=== PATIENT | female | born 1965 | race Caucasian/White ===

== ENCOUNTER 2022-12-08 13:22 | Inpatient (IN) | payer OTHER ==
[~2022-12-08] VITALS: Ht 170.2 cm; Wt 100.2 kg
[2022-12-08] MEDS ORDERED: HYDROCODONE/APAP 10-325 MG TABLET ONE (13:38)
[2022-12-08] MEDS ORDERED: HYDROCODONE/APAP 5-325MG TABLET PO ONE (13:45)
[2022-12-08] MEDS ORDERED: HYDROCODONE/APAP 10-325 MG TABLET PO ONE (13:45)
--- NOTE | 2022-12-08 14:06 | NUR ---
"Plan to admit" per Dr Zarate. ER registration/admitting staff Usha notified.
[2022-12-08 14:27] LABS: HEMATOCRIT 36.8 % (31.2-41.9); MEAN CORPUSCULAR HEMOGLOBIN 24.8 uug (24.7-32.8); MEAN CORPUSCULAR VOLUME 77.9 fL (75.5-95.3); PLATELET COUNT (AUTO) 174 K/uL (179-408)
--- NOTE | 2022-12-08 14:32 | NUR ---
Spouse is at bedside. Plan of care was discussed with patient and family. Patient and family verbalized understanding. No questions or concerns at this time from the patient and her family. Extra pillows for support to affected site were placed, pending results for now.
[2022-12-08] MEDS ORDERED: LEVO50TA PO (14:40)
[2022-12-08 14:52] LABS: CREATININE 0.7 mg/dL (0.6-1.3); POTASSIUM 3.1 mmol/L (3.5-5.1)
[2022-12-08 14:57] LABS: BILIRUBIN,TOTAL 0.7 mg/dL (0.2-1.0); TOTAL PROTEIN, SERUM 7.5 g/dL (6.4-8.2)
[2022-12-08] MEDS ORDERED: MORPHINE SULFATE 4 MG/1 ML DISP.SYRIN ONE ×2 (15:04→16:11)
[2022-12-08] MEDS ORDERED: MORPHINE SULFATE 4 MG/1 ML DISP.SYRIN IV ONE ×2 (15:15→16:15)
[2022-12-08] MEDS ORDERED: ONDANSETRON 4 MG/2 ML VIAL IV PRN (15:30)
[2022-12-08] MEDS ORDERED: ACETAMINOPHEN 325 MG TABLET PO PRN (15:30)
[2022-12-08] MEDS ORDERED: MAGNESIUM HYDROXIDE 30 ML LIQUID UDC PO PRN (15:30)
[2022-12-08] MEDS ORDERED: HYDROCODONE/APAP 5-325MG TABLET PO PRN (15:30)
[2022-12-08] MEDS ORDERED: IV D5 1/2 NS 1000 ML 1,000 ML IV PRN (15:30)
[2022-12-08] MEDS ORDERED: POTASSIUM CHLORIDE 20 MEQ TAB.PRT.SR PO ONE (15:30)
[2022-12-08] MEDS ORDERED: REMEDY ESSENTIAL ZINC PASTE 113 GM TP PRN (15:30)
--- NOTE | 2022-12-08 16:28 | NUR ---
Pending callback from 3rd floor nurse Patrick to accept this patient to room 311, patient is admitted to medical-surgical floor room 311, under the care of [facility] hospitalist Norma Mills. Belongings List completed.
[2022-12-08] MEDS ORDERED: FENTANYL CITRATE 100 MCG/2 ML AMPUL IV ONE (17:15)
[2022-12-08] MEDS ORDERED: FENTANYL CITRATE 100 MCG/2 ML AMPUL ONE (17:16)
--- NOTE | 2022-12-08 17:41 | NUR ---
Jesenia bergman in ED - 12/08/22 at 1759 by PAYTON Patient is now in 3rd floor room 311. Reasessment for pain post IV fenatanyl will be done by primary 3rd floor nurse
--- NOTE | 2022-12-08 17:41 | NUR ---
Patient is now in 3rd floor room 311. Reassessment for pain post IV fentanyl will be done by primary 3rd floor nurse
[2022-12-08 17:56] LABS: *BILIRUBIN,URIN NEGATIVE (NEGATIVE); *BLOOD, URINE NEGATIVE (NEGATIVE); *CLARITY,URINE CLEAR (CLEAR); *COLOR,URINE YELLOW (YELLOW); *KETONES,URINE NEGATIVE (NEGATIVE); *UROBILINOGEN,URINE 0.2 E.U./dl (NORMAL); LEUKOCYTE ESTERASE ,URINE NEGATIVE (NEGATIVE); NITRITE, URINE NEGATIVE (NEGATIVE); PH,URINE 6.5 (5.0-8.0); UGLUCOSE NEGATIVE (NEGATIVE)
[2022-12-08 17:57] VITALS: BP 139/65
[2022-12-08] MEDS: HYDROCODONE/APAP 5-325MG TABLET PO ONE ×2 (18:39→18:54)
--- NOTE | 2022-12-08 18:39 | NUR ---
Patient said she feels fine at this time, does not want norco at this time. Addendum: 12/08/22 at 0 by IVAN QUIGLEY RN, RN patient changed her mind and requested norco, administered as ordered.
--- NOTE | 2022-12-08 19:11 | NUR ---
patient admitted from ER for left leg fracture. NPO. alert,oriented x4, no sob, respirations are even nonlabored, skin warm and dry to touch. no skin issues noted.
--- NOTE | 2022-12-08 19:30 | NUR ---
Received in bed alert oriented, no sob no chest pain noted, but has pain left hip fracture, will medicate the patient as ordered, patient remains NPO at this time. at bedside helps attend patient needs. For ortho follow up. cont to monitor.
[2022-12-08 20:12] VITALS: BP 142/66
--- NOTE | 2022-12-08 21:14 | NUR ---
Patient complain of abdominal pain, notify Norma Mills PROFESSIONAL NURSING ASSISTANT with order of pepcid 20mg po once.
[2022-12-08] MEDS ORDERED: FAMOTIDINE 20 MG TABLET PO ONE (21:15)
[2022-12-08] MEDS: MORPHINE SULFATE 2 MG/1 ML DISP.SYRIN IV PRN (22:01)
--- NOTE | 2022-12-09 | NUR ---
Patient sleep intermittently, Morphine 1mg iv help the pain, but refused to take stronger or more pain medication. Patient kept clean and dry, uses Pure Wick. Patient refused peter cath, cont pain management. Patient given Ice Pack on her left fracture, plus her mint lotion applied. cont to monitor.
[2022-12-09 04:50] VITALS: BP 143/75
[2022-12-09] MEDS: MORPHINE SULFATE 2 MG/1 ML DISP.SYRIN IV PRN ×2 (04:59→09:06)
[2022-12-09] MEDS: LEVOTHYROXINE SODIUM 50 MCG TABLET PO SCH (06:10)
[2022-12-09 06:41] LABS: MEAN CORPUSCULAR VOLUME 77.7 fL (75.5-95.3); PLATELET COUNT (AUTO) 173 K/uL (179-408)
[2022-12-09 07:09] LABS: CREATININE 0.6 mg/dL (0.6-1.3); PHOSPHOROUS 3.8 mg/dL (2.5-4.9); POTASSIUM 4.2 mmol/L (3.5-5.1)
[2022-12-09 07:19] LABS: THYROID STIMULATING HORMONE 4.516 mIU/mL (0.358-3.740)
--- NOTE | 2022-12-09 07:42 | NUR ---
DR PATTERSON CALLED AND HAD TELEPHONE ORDER OF PROCEDURAL CONSENT OF LEFT HIP ARTROPLASTY, ENDORSE TO NEXT SHIFT.
--- NOTE | 2022-12-09 07:43 | NUR ---
pATIENT ALERT ORIENTED, CONT ON PAIN MANAGEMENT, NO S/S OF DISTRESS, ICE PACK ON LEFT HIP TO HELP SWELLING AND PAIN,
[2022-12-09] MEDS: PANTOPRAZOLE SODIUM 40 MG VIAL IV SCH (08:40)
--- NOTE | 2022-12-09 09:21 | NUR ---
DR CELIS HERE SEEN PATIENT WITH NEW ORDERS AND NOTED CXR AND EKG DONE ORDERED PRE OP TEACHING IN PROGRESS AT THIS TIME.
--- NOTE | 2022-12-09 09:33 | NUR ---
KEVIN MANAGER EDITORIAL HERE SEEN PATIENT WITH NEW ORDERS AND NOTED.
[2022-12-09 11:33] VITALS: BP 145/66
--- NOTE | 2022-12-09 12:30 | NUR ---
INSERTED MCCOY CATH GAUGE 16 TOLERATED WELL AWAITING FOR GAS APPLIANCE INSTALLER FOR THE SURGERY
[2022-12-09] MEDS ORDERED: VANCOMYCIN 1000 MG VIAL ONE (12:37)
[2022-12-09] MEDS ORDERED: FENTANYL CITRATE 100 MCG/2 ML AMPUL ONE (12:40)
[2022-12-09] MEDS ORDERED: MIDAZOLAM HCL 2 MG/2 ML VIAL ONE (12:40)
--- NOTE | 2022-12-09 12:41 | NUR ---
PATIENT PICKED UP BY BED TO OPERATING ROOM FOR THE LEFT HIP SURGERY ORDERED IN SATISFACTORY CONDITION
[2022-12-09] MEDS ORDERED: BUPIVACAINE PF 0.5% 30 ML VIAL ONE (12:45)
[2022-12-09] MEDS ORDERED: CEFAZOLIN 1 G VIAL ONE (13:15)
[2022-12-09] MEDS ORDERED: DEXAMETHASONE SOD PHOSPHATE 4 MG INJ ONE (13:15)
[2022-12-09] MEDS ORDERED: PROPOFOL 200 MG/20 ML BOTTLE ONE (13:15)
[2022-12-09] MEDS ORDERED: ONDANSETRON 4 MG/2 ML VIAL ONE (13:15)
[2022-12-09] MEDS ORDERED: BUPIVACAINE/EPI PF 0.5% 10 ML VIAL ONE (14:46)
[2022-12-09] MEDS ORDERED: HYDROMORPHONE 1 MG/1 ML DISP.SYRIN ONE (15:49)
[2022-12-09 15:51] LABS: HEMATOCRIT 35.6 % (31.2-41.9)
[2022-12-09] MEDS ORDERED: IV D5W-0.45% NS +20 KCL 1,000 ML IV ONE (15:58)
--- NOTE | 2022-12-09 16:50 | NUR ---
PATIENT RETURNED FROM POST ANESTHESIA CARE UNIT BY BED TO HER ROOM AWAKE ALERT ORIENTED DENIES PAIN OR DISCOMFORTS AT THIS TIME LEFT HIP WITH DRESSING INTACT WITH NO BLEEDING ICE PACK IN USE ABLE TO WIGGLE TOES OF BOTH LOWER EXT FAMILY AT THE BEDSIDE MADE COMFORTABLE WILL OBSERVE.
[2022-12-09 17:04] VITALS: BP 123/70
[2022-12-09] MEDS ORDERED: HYDROCODONE/APAP 10-325 MG TABLET PO PRN (17:15)
[2022-12-09] MEDS: IV D5W-0.45% NS +20 KCL 1,000 ML IV PRN (17:22)
[2022-12-09] MEDS: MORPHINE SULFATE 4 MG/1 ML DISP.SYRIN IV PRN ×2 (17:24→20:40)
--- NOTE | 2022-12-09 17:24 | NUR ---
MEDICATED FOR LEFT HIP PAIN ORDERED WILL OBSERVE IVF IN PROGRESS ORDERED INCENTIVE SPIROMETER GIVEN AND EDUCATED ON ITS USE AND SHE EXPRESSED UNDERSTANDING.
[2022-12-09 17:31] VITALS: BP 110/62
[2022-12-09] MEDS ORDERED: CEFAZOLIN 1 G in IV DEXTROSE 5% 50 ML IV SCH (18:00)
[2022-12-09 18:18] VITALS: BP 120/65
[2022-12-09 20:00] VITALS: BP 121/74
[2022-12-09] MEDS: CEFAZOLIN 1 G in IV DEXTROSE 5% 50 ML IV SCH (20:24)
[2022-12-10] VITALS: BP 112/67
[2022-12-10] MEDS: MORPHINE SULFATE 4 MG/1 ML DISP.SYRIN IV PRN ×3 (00:02→08:21)
[2022-12-10 04:00] VITALS: BP 135/85
[2022-12-10] MEDS: CEFAZOLIN 1 G in IV DEXTROSE 5% 50 ML IV SCH (04:01)
[2022-12-10] MEDS: IV D5W-0.45% NS +20 KCL 1,000 ML IV PRN (04:03)
[2022-12-10] MEDS: LEVOTHYROXINE SODIUM 50 MCG TABLET PO SCH (06:23)
[2022-12-10 06:45] LABS: HEMATOCRIT 29.8 % (31.2-41.9); MEAN CORPUSCULAR HEMOGLOBIN 25.4 uug (24.7-32.8); MEAN CORPUSCULAR VOLUME 78.2 fL (75.5-95.3); PLATELET COUNT (AUTO) 193 K/uL (179-408)
[2022-12-10 06:57] LABS: CREATININE 0.9 mg/dL (0.6-1.3); MAGNESIUM 1.7 mg/dL (1.8-2.4); PHOSPHOROUS 3.9 mg/dL (2.5-4.9)
[2022-12-10] MEDS: PANTOPRAZOLE SODIUM 40 MG VIAL IV SCH (08:20)
--- NOTE | 2022-12-10 08:21 | NUR ---
ALERT ORIENTED AND VERBALLY RESPONSIVE ON ROOM AIR WITH NO SHORTNESS OF BREATH LEFT HIP WITH DRESSING INTACT WITH ABDUCTION PILLOW AND HIP DISLOCATION PROTOCOL AND TEACHING MEDICATED WITH MORPHINE AT THIS TIME ORDERED INCENTIVE SPIROMETER ENCOURAGED CALL LIGHTS AND PERSONAL BELONGINGS ARE WITHIN EASY REACH WILL CONTINUE TO OBSERVE.
--- NOTE | 2022-12-10 09:15 | NUR ---
PATIENT CALLED THE STATION AND STATED THAT SHE IS TREMBLING CHECKED HER TELE AND HER RATE IS 80 AND SR VITALS CHECKED PULSE IS 83 B/P IS 144/67 O2 SAT AT 95 PERCENT ROOM AIR PATIENT REASSURED AND ENCOURAGED TO RELAX HER MOM AND HER SON ARE BOTH PRESENT IN THE ROOM.
--- NOTE | 2022-12-10 09:30 | NUR ---
PATIENT SEEN BY THE PHYSICAL THERAPY FOR THERAPEUTIC EXERCISES AND GAIT TRAINING SHE WAS GOTTEN OUT OF BED AND SHE TOOK ONLY 4 STEPS AND BACK TO BED.
--- NOTE | 2022-12-10 10:30 | NUR ---
PATIENT C/O SO MUCH PAIN DESPITE THE MORPHINE ADMINISTRATION ORDERED CALLED AND SPOKE WITH MAO PUGH NP AND GOT NEW ORDER MORPHINE DISCONTINUED AND TO START DILAUDID TO BETTER MANAGE HER PAIN
[2022-12-10] MEDS: HYDROMORPHONE 1 MG/1 ML DISP.SYRIN IV PRN ×3 (10:42→20:09)
[2022-12-10 11:57] VITALS: BP 145/75
[2022-12-10] MEDS ORDERED: MAGNESIUM OXIDE 400 MG TABLET PO ONE (12:00)
--- NOTE | 2022-12-10 12:30 | NUR ---
PATIENT SEEN AND EXAMINED BY HELDER PUGH WITH NEW ORDERS AND NOTED.
--- NOTE | 2022-12-10 15:28 | NUR ---
C/O PAIN IS GETTING WORSE MEDICATED WITH DILAUDID ORDERED MADE COMFORTABLE ENCOURAGED INCENTIVE SPIROMETER AND FLUID INTAKE AND EXPRESSED UNDERSTANDING
[2022-12-10] MEDS: ENOXAPARIN SODIUM 40 MG/0.4 ML DISP.SYRIN SQ SCH (15:31)
[2022-12-10 15:50] VITALS: BP 143/75
[2022-12-10 15:54] VITALS: BP 143/75
--- NOTE | 2022-12-10 18:00 | NUR ---
PATIENT IS RESTING IN BED DENIES C/O AT THIS TIME.WILL CONTINUE TO OBSERVE
[2022-12-10 20:00] VITALS: BP 135/66
[2022-12-10] MEDS: DOCUSATE SODIUM 100 MG CAPSULE PO SCH (20:46)
[2022-12-11] MEDS: HYDROMORPHONE 1 MG/1 ML DISP.SYRIN IV PRN ×5 (00:30→18:27)
[2022-12-11 05:40] VITALS: BP 119/56
--- NOTE | 2022-12-11 05:55 | NUR ---
Awake alert and oriented x4 All needs attended. VSS. S/P left hip arthroplasty. Left hip dressing clean dry and intact. Pain meds given as needed. Relief noted. Will monitor patient. Garcia catheter draining yellow urine.
[2022-12-11] MEDS: PANTOPRAZOLE SODIUM 40 MG TABLET.DR PO SCH (06:16)
[2022-12-11] MEDS: LEVOTHYROXINE SODIUM 50 MCG TABLET PO SCH (06:16)
[2022-12-11 07:25] LABS: HEMATOCRIT 25.2 % (31.2-41.9); MEAN CORPUSCULAR HEMOGLOBIN 25.7 uug (24.7-32.8); MEAN CORPUSCULAR VOLUME 77.8 fL (75.5-95.3); PLATELET COUNT (AUTO) 152 K/uL (179-408)
--- NOTE | 2022-12-11 07:30 | NUR ---
RECEIVED PATIENT REPORT: 1) AOx4 - asleep comfortably, no sign of pain, SOB - or distress. 2) Wound dressing remains clean and intact. 3) IV fluids running as per regime. 4) IV access 20g R Hand - patent, clean, dry and no sign of infection or inflammation observed. 5) PLAN: (i) Pain management (ii) wound management (iii) Catheter care
[2022-12-11 07:58] LABS: CREATININE 0.6 mg/dL (0.6-1.3); MAGNESIUM 1.7 mg/dL (1.8-2.4); PHOSPHOROUS 3.2 mg/dL (2.5-4.9)
[2022-12-11] MEDS: DOCUSATE SODIUM 100 MG CAPSULE PO SCH ×2 (09:11→20:31)
[2022-12-11] MEDS: ENOXAPARIN SODIUM 40 MG/0.4 ML DISP.SYRIN SQ SCH (09:20)
--- NOTE | 2022-12-11 10:25 | NUR ---
SB PT - exercise in bed will come back in the afternoon
[2022-12-11] MEDS: MAGNESIUM SULFATE/D5W 100 ML IV SCH ×2 (11:39→11:40)
[2022-12-11 11:45] VITALS: BP 125/71
--- NOTE | 2022-12-11 14:30 | NUR ---
SB PT - exercise and walked to door and back
--- NOTE | 2022-12-11 15:00 | NUR ---
INFORMED MD PATTERSON: 1) Family worried that patient has an infection. 2) Patient hasn't been reviewed since surgery. 3) In view of previous fevers - family want MD to review.
[2022-12-11 15:50] VITALS: BP 121/66
[2022-12-11] MEDS: HYDROCODONE/APAP 10-325 MG TABLET PO PRN (15:53)
--- NOTE | 2022-12-11 15:53 | NUR ---
PAIN MANAGEMENT: 1) Pain meds administered as prescribed with effect 2) Encouraged patient to also consider [place] for break through and not wait for pain to get out of hand.
[2022-12-11] MEDS: IV LACTATED RINGERS SOLUTION 1,000 ML IV PRN (15:59)
--- NOTE | 2022-12-11 16:00 | NUR ---
MD PATTERSON RESPONDED: 1) Will review patient after office hours. 2) Stated that its too soon to be infected and was covered with ATB. 3) Patient informed
--- NOTE | 2022-12-11 18:30 | NUR ---
REVIEWED BY DR PATTERSON: 1) Dressing removed and reinforced with steri strips - no bleeding 2) To leave the wound open to air
--- NOTE | 2022-12-11 19:41 | NUR ---
1) No further complaints at the time of this report. 2) Will endorse care to night staff who will treat patient accordingly.
[2022-12-11 20:00] VITALS: BP 109/56
[2022-12-12] VITALS (8 sets, daily range): BP systolic 110–128; BP diastolic 48–70
[2022-12-12] MEDS: HYDROMORPHONE 1 MG/1 ML DISP.SYRIN IV PRN ×2 (00:12→19:09)
[2022-12-12] MEDS: HYDROCODONE/APAP 10-325 MG TABLET PO PRN ×5 (03:22→22:59)
--- NOTE | 2022-12-12 03:52 | NUR ---
Awake alert and oriented x4 All needs attended. Left hip with steristrips VIDHYA. Kept comfortable. Tolerated po meds well. IVF's infusing well. Pain meds given as needed for pain on the left hip. Garcia catheter intact draining yellow urine. I & O monitor. Repositioned for comfort. Turned q 2h. Will monitor patient. VSS.
[2022-12-12] MEDS: IV LACTATED RINGERS SOLUTION 1,000 ML IV PRN (05:33)
[2022-12-12] MEDS: PANTOPRAZOLE SODIUM 40 MG TABLET.DR PO SCH (06:04)
[2022-12-12] MEDS: LEVOTHYROXINE SODIUM 50 MCG TABLET PO SCH (06:04)
[2022-12-12 06:39] LABS: HEMATOCRIT 22.5 % (31.2-41.9); MEAN CORPUSCULAR HEMOGLOBIN 25.6 uug (24.7-32.8); MEAN CORPUSCULAR VOLUME 77.8 fL (75.5-95.3); PLATELET COUNT (AUTO) 128 K/uL (179-408)
[2022-12-12 06:48] LABS: CREATININE 0.6 mg/dL (0.6-1.3); MAGNESIUM 2.1 mg/dL (1.8-2.4); PHOSPHOROUS 3.6 mg/dL (2.5-4.9); POTASSIUM 3.7 mmol/L (3.5-5.1)
--- NOTE | 2022-12-12 07:30 | NUR ---
Lab called for a critical value Hgb 7.4 Hct 22.5 Endorsed to andrade HERNANDEZ.
[2022-12-12] MEDS: DOCUSATE SODIUM 100 MG CAPSULE PO SCH ×2 (08:15→21:41)
--- NOTE | 2022-12-12 08:20 | NUR ---
Awake, alert, oriented x 4. Reports of pain left hip. Paulina po given as ordered. PRBC 1 unit ordered for H/H 7.4/22.5.
[2022-12-12] MEDS ORDERED: DOCUSATE SODIUM 100 MG CAPSULE PO SCH (09:45)
[2022-12-12] MEDS: SENNOSIDES 1 TABLET PO SCH (09:53)
--- NOTE | 2022-12-12 11:00 | NUR ---
Bed bath given. Assisted out of bed, ambulated with FWW to the door and back to bed.
--- NOTE | 2022-12-12 13:00 | NUR ---
Left hip with steri strips clean and dry, noted slight discoloration of site. CT left hip on hold
--- NOTE | 2022-12-12 13:34 | NUR ---
1 unit PRBC started as ordered, monitored per protocol
--- NOTE | 2022-12-12 17:15 | NUR ---
1 unit PRBC finished. No BT reactions noted.
[2022-12-12] MEDS ORDERED: BISACODYL 10 MG SUPP.RECT RC PRN (20:15)
--- NOTE | 2022-12-12 21:30 | NUR ---
Dr Cosme ordered venous doppler for pt's c/o left leg cramping
--- NOTE | 2022-12-12 23:37 | NUR ---
venous doppler prelim result is negative for DVT; SCD applied; pt c/o pain and cramps again to the left leg; pt is now off scds from the left leg;
[2022-12-13 04:00] VITALS: BP 115/56
[2022-12-13] MEDS: HYDROCODONE/APAP 10-325 MG TABLET PO PRN ×5 (06:25→22:49)
[2022-12-13] MEDS: PANTOPRAZOLE SODIUM 40 MG TABLET.DR PO SCH (06:26)
[2022-12-13] MEDS: LEVOTHYROXINE SODIUM 50 MCG TABLET PO SCH (06:26)
[2022-12-13 06:35] LABS: HEMATOCRIT 23.8 % (31.2-41.9); MEAN CORPUSCULAR HEMOGLOBIN 26.9 uug (24.7-32.8); MEAN CORPUSCULAR VOLUME 78.6 fL (75.5-95.3); PLATELET COUNT (AUTO) 141 K/uL (179-408)
--- NOTE | 2022-12-13 06:48 | NUR ---
Pt rested well in between care; pt's at bedside; pain management with [place]; repositioned for comfort; will endorse to next RN to give dulcolax suppository; continue to monitor; continue plan of care.
[2022-12-13 06:51] LABS: CREATININE 0.6 mg/dL (0.6-1.3); MAGNESIUM 2.1 mg/dL (1.8-2.4); PHOSPHOROUS 4.1 mg/dL (2.5-4.9); POTASSIUM 4.1 mmol/L (3.5-5.1)
[2022-12-13] MEDS: DOCUSATE SODIUM 100 MG CAPSULE PO SCH ×3 (09:30→21:01)
[2022-12-13] MEDS: SENNOSIDES 1 TABLET PO SCH (09:30)
[2022-12-13 11:03] VITALS: BP 116/68
[2022-12-13 16:09] VITALS: BP 105/58
[2022-12-13] MEDS: PROTEIN SUPPLEMENT (PROSTAT) 30 ML LIQUID PO SCH (18:13)
[2022-12-13 20:00] VITALS: BP 121/79
--- NOTE | 2022-12-13 20:19 | NUR ---
RN RECEIVED REPORT FROM MARY SHAH, NOC SHIFT. PATIENT IS ALERT AND ORIENTED X4 AND VITAL SIGNS STABLE. PATIENT COMPLAINED OF PAIN. RN GAVE PAIN MEDICATIONS ORDERED. PATIENT TOLERATES PO MEDICATIONS AND DIET WELL. PATIENT PARTICIPATES WITH PHYSICAL AND OCCUPATIONAL THERAPY SCHEDULED. PATIENT'S FAMILY VISITED. MCCOY CATHETER REMOVED AT 1630PM. PATIENT VOIDS AT 1934 250CC VIA COMMODE. PATIENT PENDING FOR DISCHARGE TOMORROW NOTIFIED BY LOFT WORKER, WILIAN. NO ACUTE DISTRESS NOTED. ALL NEEDS MET AT THIS TIME. RN ENDORSED CONTINUATION OF CARE TO J2EE ARCHITECT RN, FOR THE CONTINUATION OF CARE.
--- NOTE | 2022-12-13 20:20 | NUR ---
PATIENT ABLE TO HAVE BOWEL MOVEMENT FOLLOWING SUPPOSITORY. PATIENT ABLE TO TRANSFER TO [facility] FOR RESTROOM.
--- NOTE | 2022-12-13 21:00 | NUR ---
NSG: Received patient lying in bed. pt is awake, alert, oriented x 4. family @ bedside. call light w/in reach.
--- NOTE | 2022-12-14 01:45 | NUR ---
NSG: Resting in bed comfortably. call light w/in reach.
[2022-12-14] MEDS: HYDROCODONE/APAP 10-325 MG TABLET PO PRN ×2 (03:38→07:52)
--- NOTE | 2022-12-14 03:45 | NUR ---
NSG: Awake alert and oriented x4 assisted to use bathroom. Left hip with steri strips open to air. Kept comfortable. Tolerated po meds well. Repositioned for comfort. Turned q 2h. Will monitor patient. call light w/in reac.
[2022-12-14 04:00] VITALS: BP 145/73
[2022-12-14] MEDS: LEVOTHYROXINE SODIUM 50 MCG TABLET PO SCH (06:00)
[2022-12-14] MEDS: PANTOPRAZOLE SODIUM 40 MG TABLET.DR PO SCH (06:00)
[2022-12-14 07:04] LABS: HEMATOCRIT 26.2 % (31.2-41.9); MEAN CORPUSCULAR VOLUME 79.2 fL (75.5-95.3); PLATELET COUNT (AUTO) 180 K/uL (179-408)
[2022-12-14] MEDS: SENNOSIDES 1 TABLET PO SCH (08:03)
[2022-12-14] MEDS: DOCUSATE SODIUM 100 MG CAPSULE PO SCH (08:03)
[2022-12-14] MEDS: PROTEIN SUPPLEMENT (PROSTAT) 30 ML LIQUID PO SCH (08:04)
[2022-12-14] MEDS ORDERED: GLUCERNA SHAKE 237 ML CAN PO SCH (09:00)
[2022-12-14 09:01] LABS: CREATININE 0.6 mg/dL (0.6-1.3); PHOSPHOROUS 4.4 mg/dL (2.5-4.9); POTASSIUM 4.6 mmol/L (3.5-5.1)
[2022-12-14] MEDS ORDERED: HYDROCORTISONE 1% OINT 28.35 GM TUBE TOP PRN (09:45)
[2022-12-14] MEDS ORDERED: HYDR-3980 PO (09:59)
[2022-12-14] MEDS ORDERED: SENN-175 PO (09:59)
[2022-12-14] MEDS ORDERED: DOCU-141 PO (09:59)
[2022-12-14] MEDS ORDERED: MAGN400T26 PO (09:59)
[2022-12-14] MEDS ORDERED: ENOX40DI SUBCUT (10:09)
--- NOTE | 2022-12-14 11:40 | NUR ---
patient discharged home with her son, assisted safely to the car. discharge teaching provided to patient, about follow up with surgeon, and primary care team for follow up on lab work. instructions provided for subcutaneous injection, bleeding precautions, signs and symptoms of anemia, incision care. material provided and verbal instructions provided as well. verbal teaching provided for pain management and use of narcotics. patient verbalized understanding of it. IV removed, ID removed. belongings are accounted and signed. incision care provided, no signs and symptoms of infection noted at incision site. no increased erythema, no drainage, noted at left hip incision. patient is alert, oriented x4, stable condition.
== END 2022-12-14 11:40 | disposition home health service (06) | DRG 522 ==
LOC: ER 13:24 → MEDSURG3 17:06 → TELE3 12-09 09:40 → MEDSURG3 12-10 10:27
PROVIDERS: ADMIT Registered Nurse; ATTEND Registered Nurse
PROC: 0SRS0JA Replacement of Left Hip Joint, Femoral Surface with Synthetic Substitute, Uncemented, Open Approach (ICD-10-PCS; principal; 2022-12-09)
PROC: 30233N1 Transfusion of Nonautologous Red Blood Cells into Peripheral Vein, Percutaneous Approach (ICD-10-PCS; 2022-12-12)
DX: S72.032A Displaced midcervical fracture of left femur, initial encounter for closed fracture (principal); D62 Acute posthemorrhagic anemia; W01.0XXA Fall on same level from slipping, tripping and stumbling without subsequent striking against object, initial encounter; Y93.01 Activity, walking, marching and hiking; Y92.480 Sidewalk as the place of occurrence of the external cause; E66.01 Morbid (severe) obesity due to excess calories; Z68.35 Body mass index [BMI] 35.0-35.9, adult; E03.9 Hypothyroidism, unspecified; E87.6 Hypokalemia; E83.42 Hypomagnesemia; K21.9 Gastro-esophageal reflux disease without esophagitis; R00.2 Palpitations; Z79.890 Hormone replacement therapy; I10 Essential (primary) hypertension; M89.9 Disorder of bone, unspecified; Z20.822 Contact with and (suspected) exposure to COVID-19
CPT/HCPCS: 36415; 71045; 73501; 73502; 83735; 84100; 84443; 84481; 85018; 85025; 85610; 86850; 86900; 86901; 86920; 93005; A4663; C1716; C1776; C9113; G0378; J0690; J1100; J1170; J1650; J2250; J2270; J2405; J3010; J3370; J3475; J3490; P9016; U0003